=== PATIENT | female | born 1950 | race Caucasian/White ===

== ENCOUNTER → 2017-01-03 | Outpatient (CLI) | payer BC, MEDICARE, MEDICAID ==
[~2017-01-03] MED LIST: ACET-2723 PO; ALBU0.63 AEROSOL; ALLO100T PO; ASPI-450 PO; ATOR20TA PO; BUME1TAB17 PO; ESCI20TA PO; FURO-154 PO; HYDR-4078 PO; INSU100C14 SQ; INSU100V8 SQ; LEVO75TA10 PO; LISI10TA7 PO; METO1TAB13; MONT10TA22 PO; OSEL75CA PO
--- NOTE | 2017-01-03 13:01 | DI ---
Indication: ITS.REASON: N18.4 CHRONIC KIDNEY DISEASE, STAGE 4 PROCEDURE: US RENAL: Encounter: Initial Comparison: None Technique: Grayscale and color Doppler sonographic imaging of both kidneys was performed. FINDINGS: Both kidneys are present with normal cortical thickness and echogenicity. No evidence for collecting system dilatation, contour deforming mass, nephrolithiasis, or abnormal perinephric fluid collection. The right kidney measures 8.7 cm in length, and the left kidney measures 8.9 cm in length, slightly small. IMPRESSION: No hydronephrosis. Slightly small kidneys. .
== END ==
LOC: IMA 11:12
PROVIDERS: ATTEND Specialist
DX: N18.4 Chronic kidney disease, stage 4 (severe) (principal)